=== PATIENT | male | born 1950 | race Caucasian/White ===

== ENCOUNTER 2020-02-25 10:18 | Inpatient (IN) | payer MEDICARE, MEDICAID ==
[~2020-02-25] VITALS: Ht 172.7 cm; Wt 93.4 kg
[2020-02-25 11:17] LABS: BG BASE EXCESS 2.7 mmol/L (-2.0-2.0); BG CARBOXYHEMOGLOBIN 0.4 % (0.5-1.5); BG DEOXYHEMOGLOBIN 3.7 % (0.0-5.0); BG FRACTION INSPIRED OXYGEN 36; BG HCO3 ACT 26.5 mmol/L (22.0-26.0); BG METHEMOGLOBIN 0.2 % (0.0-1.5); BG OXYGEN SATURATION 96.3 % (92.0-98.5); BG OXYHEMOGLOBIN 95.7 % (94.0-97.0); BG PCO2 38.4 mmHg (35.0-45.0); BG PH 7.457 (7.350-7.450); BG PO2 82.7 mmHg (75.0-100.0); BG SAMPLE SITE RIGHT RADIAL; BG TOTAL HEMOGLOBIN 15.6 g/dL (12.0-18.0); BG VENT MODE NASAL CANNULA
[2020-02-25 11:36] LABS: BASOPHILS % 0.3 % (0.0-2.0); EOSINOPHILS % 3.9 % (0.0-5.0); HEMATOCRIT. 44.5 % (42.0-52.0); HEMOGLOBIN. 15.2 g/dL (14.0-18.0); LYMPHOCYTES % 17.3 % (20.0-50.0); MEAN CORPUSCULAR HEMOGLOBIN 30.3 pg (28.0-32.0); MEAN CORPUSCULAR VOLUME 88.6 fL (80.0-94.0); MEAN PLATELET VOLUME 7.6 fl (7.4-10.4); MONOCYTES % 5.9 % (2.0-8.0); NEUTROPHILS % 72.6 % (40.0-76.0); PLATELET 250 x1000/uL (130-400); RED BLOOD CELL COUNT 5.02 mill/uL (4.7-6.1); RED CELL DISTRIBUTION WIDTH 13.7 % (11.6-14.6)
[2020-02-25 11:43] LABS: CHLORIDE 102 mEq/L (98-107)
[2020-02-25 11:51] LABS: CREATINE KINASE 225 IU/L (39-308)
[2020-02-25] MEDS ORDERED: LEVOFLOXACIN 750MG PREMIX 150 ML IV ONE (12:00)
[2020-02-25 13:34] LABS: PROTHROMBIN TIME 10.6 sec (9.6-11.0)
[2020-02-25 14:43] LABS: CLARITY URINE CLEAR (CLEAR); COLOR URINE DK YELLOW (YELLOW); KETONES URINE NEGATIVE (NEGATIVE); LEUKOCYTE ESTERASE URINE NEGATIVE (NEGATIVE); NITRITE URINE NEGATIVE (NEGATIVE); OCCULT BLOOD URINE NEGATIVE (NEGATIVE); PH URINE 6.5 (4.5-8.0); PROTEIN URINE 1+ (NEGATIVE); SPECIFIC GRAVITY URINE 1.024 (1.005-1.030)
[2020-02-25] MEDS ORDERED: DIPHENHYDRAMINE 50MG/ML VIAL IV PRN (18:15)
[2020-02-25] MEDS ORDERED: CLONIDINE 0.1MG TABLET PO PRN (18:15)
[2020-02-25] MEDS ORDERED: ACETAMINOPHEN 325MG TABLET PO PRN (18:15)
[2020-02-25] MEDS ORDERED: ONDANSETRON HCL 4MG/2ML INJ IV PRN (18:15)
[2020-02-25] MEDS ORDERED: CEFTRIAXONE 1 G PREMIX 50 ML IV SCH (18:30)
[2020-02-25] MEDS ORDERED: ENOXAPARIN 40MG/0.4ML SYR SUBCUT SCH (18:30)
[2020-02-25] MEDS ORDERED: AZITHROMYCIN 500 MG in DEXT 5% WATER 250 ML IV SCH (18:30)
[2020-02-25 19:19] LABS: PHOSPHORUS 3.2 mg/dL (2.5-4.9)
[2020-02-25 20:00] VITALS: BP 128/74
[2020-02-25] MEDS ORDERED: ASPI-1497 PO (23:57)
[2020-02-26] VITALS: BP 136/72
[2020-02-26] MEDS ORDERED: TOPUD PO
[2020-02-26 04:00] VITALS: BP 104/80
[2020-02-26 07:58] LABS: BASOPHILS % 0.9 % (0.0-2.0); EOSINOPHILS % 5.7 % (0.0-5.0); HEMATOCRIT. 43.4 % (42.0-52.0); HEMOGLOBIN. 14.8 g/dL (14.0-18.0); LYMPHOCYTES % 17.4 % (20.0-50.0); MEAN CORPUSCULAR VOLUME 87.9 fL (80.0-94.0); MEAN PLATELET VOLUME 7.4 fl (7.4-10.4); MONOCYTES % 5.4 % (2.0-8.0); NEUTROPHILS % 70.6 % (40.0-76.0); PLATELET 266 x1000/uL (130-400); RED BLOOD CELL COUNT 4.93 mill/uL (4.7-6.1); RED CELL DISTRIBUTION WIDTH 13.6 % (11.6-14.6)
[2020-02-26 08:00] VITALS: BP 121/80
[2020-02-26] MEDS ORDERED: PNEUMOCOCCAL 23-VAL P-SAC VAC 0.5 ML IM ONE (08:00)
[2020-02-26 08:01] LABS: CHLORIDE 102 mEq/L (98-107)
[2020-02-26 08:07] LABS: LDL CHOLESTEROL 70 mg/dL (5-100)
[2020-02-26 08:10] LABS: HDL CHOLESTEROL 29 mg/dL (40-59)
[2020-02-26 12:00] VITALS: BP 127/81
[2020-02-26] MEDS: ALBUTEROL 6.7GM HFA INHALER ORI SCH ×3 (12:00→21:00)
[2020-02-26 12:37] LABS: T4 FREE 0.93 ng/dL (0.76-1.46)
[2020-02-26] MEDS: CEFTRIAXONE 1,000 MG in DEXTROSE 5% WATER 50 ML IV SCH (13:18)
[2020-02-26] MEDS: METHYLPREDNISOLONE SOD SUCC 40 MG/ML VIAL IV SCH ×2 (13:18→22:35)
[2020-02-26] MEDS: ENOXAPARIN 100MG/ML SYR SUBCUT SCH ×2 (13:18→22:34)
[2020-02-26] MEDS: AZITHROMYCIN 500MG in DEXTROSE 5% WATER 250ML IV SCH (14:22)
[2020-02-26 16:00] VITALS: BP 119/82
[2020-02-26 20:00] VITALS: BP 123/85
[2020-02-27] VITALS: BP 127/80
[2020-02-27 04:00] VITALS: BP 122/80
[2020-02-27] MEDS: ALBUTEROL 6.7GM HFA INHALER ORI SCH ×3 (05:06→17:20)
[2020-02-27 08:00] VITALS: BP 113/80
[2020-02-27] MEDS: METHYLPREDNISOLONE SOD SUCC 40 MG/ML VIAL IV SCH (09:16)
[2020-02-27] MEDS: ENOXAPARIN 100MG/ML SYR SUBCUT SCH (09:17)
[2020-02-27] MEDS ORDERED: LEVOTHYROXINE SODIUM 50MCG TABLET PO SCH (11:30)
[2020-02-27 12:00] VITALS: BP 127/76
[2020-02-27] MEDS: CEFTRIAXONE 1,000 MG in DEXTROSE 5% WATER 50 ML IV SCH (12:23)
[2020-02-27] MEDS: AZITHROMYCIN 500MG in DEXTROSE 5% WATER 250ML IV SCH (13:03)
[2020-02-27 16:00] VITALS: BP 128/79
[2020-02-27 20:00] VITALS: BP 137/83
[2020-02-28] VITALS: BP 145/83
[2020-02-28] MEDS: ALBUTEROL 6.7GM HFA INHALER ORI SCH ×4 (00:09→17:17)
[2020-02-28] MEDS: ENOXAPARIN 100MG/ML SYR SUBCUT SCH ×3 (00:09→21:50)
[2020-02-28 04:00] VITALS: BP 110/70
[2020-02-28 06:38] LABS: CHLORIDE 103 mEq/L (98-107)
[2020-02-28 08:00] VITALS: BP 110/70
[2020-02-28] MEDS: LEVOTHYROXINE SODIUM 50MCG TABLET PO SCH (08:13)
[2020-02-28] MEDS: DEXAMETHASONE 2MG TABLET PO SCH (08:13)
[2020-02-28 12:00] VITALS: BP 121/70
[2020-02-28] MEDS ORDERED: REMDESIVIR 200 MG in SODIUM CHLORIDE 0.9% 250 ML IV NR (12:00)
[2020-02-28] MEDS: CEFTRIAXONE 1,000 MG in DEXTROSE 5% WATER 50 ML IV SCH (13:13)
[2020-02-28] MEDS: AZITHROMYCIN 500MG in DEXTROSE 5% WATER 250ML IV SCH (13:46)
[2020-02-28 16:00] VITALS: BP 119/71
[2020-02-28 20:00] VITALS: BP 131/75
[2020-02-29] VITALS: BP 127/83
[2020-02-29] MEDS: ALBUTEROL 6.7GM HFA INHALER ORI SCH ×4 (00:42→17:10)
[2020-02-29 04:00] VITALS: BP 112/69
[2020-02-29 08:00] VITALS: BP 107/69
[2020-02-29] MEDS: ENOXAPARIN 100MG/ML SYR SUBCUT SCH ×2 (08:01→20:25)
[2020-02-29] MEDS: LEVOTHYROXINE SODIUM 50MCG TABLET PO SCH (08:01)
[2020-02-29] MEDS: DEXAMETHASONE 2MG TABLET PO SCH (08:01)
[2020-02-29] MEDS ORDERED: AZITHROMYCIN 500 MG TABLET PO SCH (09:00)
[2020-02-29] MEDS: REMDESIVIR 100 MG in SODIUM CHLORIDE 0.9% 250 ML IV SCH (11:14)
[2020-02-29] MEDS: CEFTRIAXONE 1,000 MG in DEXTROSE 5% WATER 50 ML IV SCH (11:57)
[2020-02-29 12:00] VITALS: BP 110/72
[2020-02-29 16:00] VITALS: BP 120/77
[2020-02-29 20:00] VITALS: BP 119/97
[2020-03-01] VITALS: BP 108/76
[2020-03-01] MEDS: ALBUTEROL 6.7GM HFA INHALER ORI SCH ×4 (01:23→17:53)
[2020-03-01 04:00] VITALS: BP 105/78
[2020-03-01 08:00] VITALS: BP 115/59
[2020-03-01] MEDS: DEXAMETHASONE 2MG TABLET PO SCH (09:40)
[2020-03-01] MEDS: ENOXAPARIN 100MG/ML SYR SUBCUT SCH ×2 (09:41→19:57)
[2020-03-01] MEDS: LEVOTHYROXINE SODIUM 50MCG TABLET PO SCH (09:41)
[2020-03-01 12:00] VITALS: BP 122/75
[2020-03-01] MEDS: REMDESIVIR 100 MG in SODIUM CHLORIDE 0.9% 250 ML IV SCH (13:33)
[2020-03-01] MEDS: CEFTRIAXONE 1,000 MG in DEXTROSE 5% WATER 50 ML IV SCH (13:33)
[2020-03-01 14:34] LABS: BG BASE EXCESS 1.2 mmol/L (-2.0-2.0); BG CARBOXYHEMOGLOBIN 0.4 % (0.5-1.5); BG DEOXYHEMOGLOBIN 2.4 % (0.0-5.0); BG FRACTION INSPIRED OXYGEN 100; BG HCO3 ACT 25.3 mmol/L (22.0-26.0); BG METHEMOGLOBIN 0.3 % (0.0-1.5); BG OXYGEN SATURATION 97.6 % (92.0-98.5); BG OXYHEMOGLOBIN 96.9 % (94.0-97.0); BG PCO2 38.4 mmHg (35.0-45.0); BG PH 7.436 (7.350-7.450); BG PO2 96.1 mmHg (75.0-100.0); BG SAMPLE SITE RIGHT RADIAL; BG TOTAL HEMOGLOBIN 15.7 g/dL (12.0-18.0); BG VENT MODE MASK - NRB
[2020-03-01 16:00] VITALS: BP 115/64
[2020-03-01 20:00] VITALS: BP 112/72
[2020-03-02] VITALS: BP 118/76
[2020-03-02] MEDS: ALBUTEROL 6.7GM HFA INHALER ORI SCH ×4 (00:51→18:38)
[2020-03-02 04:00] VITALS: BP 114/72
[2020-03-02 07:24] LABS: CHLORIDE 106 mEq/L (98-107)
[2020-03-02 08:00] VITALS: BP 111/75
[2020-03-02] MEDS: DEXAMETHASONE 2MG TABLET PO SCH (08:51)
[2020-03-02] MEDS: LEVOTHYROXINE SODIUM 50MCG TABLET PO SCH (08:51)
[2020-03-02] MEDS: ENOXAPARIN 100MG/ML SYR SUBCUT SCH ×2 (09:18→21:14)
[2020-03-02] MEDS: REMDESIVIR 100 MG in SODIUM CHLORIDE 0.9% 250 ML IV SCH (11:47)
[2020-03-02 11:48] VITALS: BP 111/67
[2020-03-02 20:00] VITALS: BP 112/73
[2020-03-03] VITALS: BP 115/71
[2020-03-03] MEDS: ALBUTEROL 6.7GM HFA INHALER ORI SCH ×4 (00:53→17:55)
[2020-03-03 04:00] VITALS: BP 121/69
[2020-03-03 07:44] LABS: CHLORIDE 106 mEq/L (98-107)
[2020-03-03 08:00] VITALS: BP 113/66
[2020-03-03] MEDS: LEVOTHYROXINE SODIUM 50MCG TABLET PO SCH (08:05)
[2020-03-03] MEDS: ENOXAPARIN 100MG/ML SYR SUBCUT SCH ×2 (09:03→20:51)
[2020-03-03] MEDS: DEXAMETHASONE 2MG TABLET PO SCH (09:03)
[2020-03-03 12:00] VITALS: BP 97/67
[2020-03-03] MEDS: REMDESIVIR 100 MG in SODIUM CHLORIDE 0.9% 250 ML IV SCH (13:10)
[2020-03-03 15:59] VITALS: BP 104/67
[2020-03-03 20:00] VITALS: BP 100/65
[2020-03-04] VITALS: BP 117/69
[2020-03-04] MEDS: ALBUTEROL 6.7GM HFA INHALER ORI SCH ×4 (00:49→17:38)
[2020-03-04 04:00] VITALS: BP 132/80
[2020-03-04 07:00] LABS: CHLORIDE 105 mEq/L (98-107)
[2020-03-04 07:55] LABS: BASOPHILS % 0.3 % (0.0-2.0); EOSINOPHILS % 0.2 % (0.0-5.0); HEMATOCRIT. 43.5 % (42.0-52.0); HEMOGLOBIN. 14.9 g/dL (14.0-18.0); LYMPHOCYTES % 15.1 % (20.0-50.0); MEAN CORPUSCULAR HEMOGLOBIN 30.2 pg (28.0-32.0); MEAN CORPUSCULAR VOLUME 88.6 fL (80.0-94.0); MEAN PLATELET VOLUME 7.3 fl (7.4-10.4); NEUTROPHILS % 78.4 % (40.0-76.0); PLATELET 552 x1000/uL (130-400); RED BLOOD CELL COUNT 4.91 mill/uL (4.7-6.1); RED CELL DISTRIBUTION WIDTH 13.7 % (11.6-14.6)
[2020-03-04] MEDS: ENOXAPARIN 100MG/ML SYR SUBCUT SCH ×2 (08:07→21:05)
[2020-03-04] MEDS: LEVOTHYROXINE SODIUM 50MCG TABLET PO SCH (08:07)
[2020-03-04] MEDS: DEXAMETHASONE 2MG TABLET PO SCH (08:07)
[2020-03-04 08:30] VITALS: BP 116/67
[2020-03-04 12:30] VITALS: BP 106/55
[2020-03-04 15:38] VITALS: BP 100/56
[2020-03-04 20:00] VITALS: BP 119/65
[2020-03-05] VITALS: BP 124/63
[2020-03-05] MEDS: ALBUTEROL 6.7GM HFA INHALER ORI SCH ×5 (01:23→23:15)
[2020-03-05 04:00] VITALS: BP 109/60
[2020-03-05 06:30] LABS: BASOPHILS % 0.4 % (0.0-2.0); EOSINOPHILS % 0.5 % (0.0-5.0); HEMATOCRIT. 40.9 % (42.0-52.0); HEMOGLOBIN. 13.8 g/dL (14.0-18.0); LYMPHOCYTES % 20.1 % (20.0-50.0); MEAN CORPUSCULAR VOLUME 88.7 fL (80.0-94.0); MEAN PLATELET VOLUME 7.1 fl (7.4-10.4); MONOCYTES % 6.2 % (2.0-8.0); NEUTROPHILS % 72.8 % (40.0-76.0); PLATELET 468 x1000/uL (130-400); RED BLOOD CELL COUNT 4.61 mill/uL (4.7-6.1); RED CELL DISTRIBUTION WIDTH 13.5 % (11.6-14.6)
[2020-03-05 06:35] LABS: CHLORIDE 105 mEq/L (98-107)
[2020-03-05 08:00] VITALS: BP 111/65
[2020-03-05] MEDS: LEVOTHYROXINE SODIUM 50MCG TABLET PO SCH (08:32)
[2020-03-05] MEDS: DEXAMETHASONE 2MG TABLET PO SCH (08:32)
[2020-03-05] MEDS: ENOXAPARIN 100MG/ML SYR SUBCUT SCH ×2 (08:33→21:14)
[2020-03-05 11:52] VITALS: BP 99/60
[2020-03-05 16:00] VITALS: BP 106/62
[2020-03-05 20:00] VITALS: BP 107/60
[2020-03-06] VITALS: BP 119/71
[2020-03-06 04:00] VITALS: BP 143/65
[2020-03-06] MEDS: LEVOTHYROXINE SODIUM 50MCG TABLET PO SCH (06:41)
[2020-03-06] MEDS: ALBUTEROL 6.7GM HFA INHALER ORI SCH ×3 (06:41→17:34)
[2020-03-06 07:21] LABS: BASOPHILS % 0.2 % (0.0-2.0); EOSINOPHILS % 0.6 % (0.0-5.0); HEMATOCRIT. 42.6 % (42.0-52.0); HEMOGLOBIN. 14.4 g/dL (14.0-18.0); MEAN CORPUSCULAR HEMOGLOBIN 30.1 pg (28.0-32.0); MEAN CORPUSCULAR VOLUME 89.1 fL (80.0-94.0); MEAN PLATELET VOLUME 7.3 fl (7.4-10.4); MONOCYTES % 6.6 % (2.0-8.0); NEUTROPHILS % 73.6 % (40.0-76.0); PLATELET 432 x1000/uL (130-400); RED BLOOD CELL COUNT 4.78 mill/uL (4.7-6.1); RED CELL DISTRIBUTION WIDTH 13.7 % (11.6-14.6)
[2020-03-06 07:39] LABS: CHLORIDE 103 mEq/L (98-107)
[2020-03-06 08:00] VITALS: BP 100/55
[2020-03-06 12:00] VITALS: BP 104/61
[2020-03-06] MEDS: DEXAMETHASONE 2MG TABLET PO SCH (13:06)
[2020-03-06] MEDS: ENOXAPARIN 100MG/ML SYR SUBCUT SCH ×2 (13:07→22:34)
[2020-03-06 16:00] VITALS: BP 106/69
[2020-03-06 20:00] VITALS: BP 122/71
[2020-03-07] VITALS: BP 109/72
[2020-03-07] MEDS: ALBUTEROL 6.7GM HFA INHALER ORI SCH ×4 (00:39→17:26)
[2020-03-07 04:00] VITALS: BP 107/65
[2020-03-07] MEDS: LEVOTHYROXINE SODIUM 50MCG TABLET PO SCH (06:51)
[2020-03-07 08:20] VITALS: BP 102/71
[2020-03-07] MEDS: ENOXAPARIN 100MG/ML SYR SUBCUT SCH ×2 (09:31→20:55)
[2020-03-07] MEDS: DEXAMETHASONE 2MG TABLET PO SCH (09:31)
[2020-03-07 12:03] VITALS: BP 93/59
[2020-03-07 15:50] VITALS: BP 120/78
[2020-03-07 16:46] LABS: BG BASE EXCESS 0.1 mmol/L (-2.0-2.0); BG CARBOXYHEMOGLOBIN 0.5 % (0.5-1.5); BG FRACTION INSPIRED OXYGEN 21; BG HCO3 ACT 23.8 mmol/L (22.0-26.0); BG METHEMOGLOBIN 0.3 % (0.0-1.5); BG OXYHEMOGLOBIN 93.2 % (94.0-97.0); BG PCO2 35.9 mmHg (35.0-45.0); BG PH 7.439 (7.350-7.450); BG PO2 67.9 mmHg (75.0-100.0); BG SAMPLE SITE RIGHT RADIAL; BG TOTAL HEMOGLOBIN 15.8 g/dL (12.0-18.0); BG VENT MODE ROOM AIR
[2020-03-07 20:00] VITALS: BP 113/71
[2020-03-08] VITALS: BP 117/70
[2020-03-08] MEDS: ALBUTEROL 6.7GM HFA INHALER ORI SCH ×5 (00:05→23:51)
[2020-03-08 06:00] VITALS: BP 112/64
[2020-03-08 08:00] VITALS: BP 101/70
[2020-03-08] MEDS: LEVOTHYROXINE SODIUM 50MCG TABLET PO SCH (08:16)
[2020-03-08] MEDS: DEXAMETHASONE 2MG TABLET PO SCH (08:16)
[2020-03-08] MEDS: ENOXAPARIN 100MG/ML SYR SUBCUT SCH ×4 (08:16→20:23)
[2020-03-08 10:59] LABS: BASOPHILS % 0.3 % (0.0-2.0); EOSINOPHILS % 0.5 % (0.0-5.0); HEMATOCRIT. 42.9 % (42.0-52.0); HEMOGLOBIN. 14.4 g/dL (14.0-18.0); LYMPHOCYTES % 10.3 % (20.0-50.0); MEAN CORPUSCULAR HEMOGLOBIN 29.7 pg (28.0-32.0); MEAN CORPUSCULAR VOLUME 88.8 fL (80.0-94.0); MEAN PLATELET VOLUME 7.3 fl (7.4-10.4); MONOCYTES % 4.3 % (2.0-8.0); NEUTROPHILS % 84.6 % (40.0-76.0); PLATELET 380 x1000/uL (130-400); RED BLOOD CELL COUNT 4.83 mill/uL (4.7-6.1); RED CELL DISTRIBUTION WIDTH 13.9 % (11.6-14.6)
[2020-03-08 11:03] LABS: CHLORIDE 104 mEq/L (98-107)
[2020-03-08 12:00] VITALS: BP 110/70
[2020-03-08 16:00] VITALS: BP 119/72
[2020-03-08 20:00] VITALS: BP_SYST 116; BP_SYST 167; BP_DIAS 50; BP_DIAS 59
[2020-03-09] VITALS: BP 110/67
[2020-03-09 04:00] VITALS: BP 103/68
[2020-03-09] MEDS: ALBUTEROL 6.7GM HFA INHALER ORI SCH ×4 (06:07→23:15)
[2020-03-09 08:00] VITALS: BP 103/58
[2020-03-09] MEDS: LEVOTHYROXINE SODIUM 50MCG TABLET PO SCH (08:22)
[2020-03-09] MEDS: ENOXAPARIN 100MG/ML SYR SUBCUT SCH ×2 (08:22→20:25)
[2020-03-09] MEDS: DEXAMETHASONE 4MG TABLET PO SCH (08:22)
[2020-03-09 12:00] VITALS: BP 104/62
[2020-03-09 16:00] VITALS: BP 113/64
[2020-03-09 20:00] VITALS: BP 107/61
[2020-03-10] VITALS: BP 110/67
[2020-03-10 04:00] VITALS: BP 94/63
[2020-03-10] MEDS: ALBUTEROL 6.7GM HFA INHALER ORI SCH ×3 (05:35→17:56)
[2020-03-10 08:00] VITALS: BP 102/58
[2020-03-10] MEDS: DEXAMETHASONE 4MG TABLET PO SCH (08:27)
[2020-03-10] MEDS: LEVOTHYROXINE SODIUM 50MCG TABLET PO SCH (08:28)
[2020-03-10] MEDS: ENOXAPARIN 100MG/ML SYR SUBCUT SCH (09:22)
[2020-03-10 11:03] VITALS: BP 119/74
[2020-03-10 12:00] VITALS: BP 123/70
[2020-03-10] MEDS ORDERED: ALBU18HF2 IH (14:39)
[2020-03-10] MEDS ORDERED: LEVO50TA8 PO (14:39)
[2020-03-10 16:00] VITALS: BP 119/74
== END 2020-03-10 17:31 | disposition home or self-care (01) | DRG 871 ==
LOC: ER 10:18 → 7WST 12:58 → EDBEDREQ 13:01 → EDBEDREQSVC 13:01 → ENRESERV 19:31
PROVIDERS: ADMIT Internal Medicine; ATTEND Internal Medicine
PROC: XW033E5 Introduction of Remdesivir Anti-infective into Peripheral Vein, Percutaneous Approach, New Technology Group 5 (ICD-10-PCS; principal; 2020-02-28)
PROC: 30233K1 Transfusion of Nonautologous Frozen Plasma into Peripheral Vein, Percutaneous Approach (ICD-10-PCS; 2020-03-03)
DX: A41.89 Other specified sepsis (principal); U07.1 COVID-19; J96.01 Acute respiratory failure with hypoxia; J12.89 Other viral pneumonia; D68.59 Other primary thrombophilia; E03.9 Hypothyroidism, unspecified; I25.10 Atherosclerotic heart disease of native coronary artery without angina pectoris; K52.9 Noninfective gastroenteritis and colitis, unspecified; B97.89 Other viral agents as the cause of diseases classified elsewhere; I51.7 Cardiomegaly; R74.0 Nonspecific elevation of levels of transaminase and lactic acid dehydrogenase [LDH]; R94.6 Abnormal results of thyroid function studies
CPT/HCPCS: 36415; 36600; 71045; 80048; 80053; 80061; 81003; 82375; 82550; 82728; 82805; 83605; 83615; 83735; 83880; 84100; 84145; 84439; 84443; 84481; 84484; 85025; 85384; 86140; 86850; 86900; 86927; 87635; 90732; 93005; 94640; 96365; 99291; J0456; J0696; J1650; J1956; J2920; J7050; J7060; J8540; P9017; Q9957; U0003-CS